=== PATIENT | male | born 1995 | race Caucasian/White ===

== ENCOUNTER 2017-09-03 16:41 | Emergency (ER) | payer OTHER ==
[~2017-09-03] VITALS: Ht 188 cm; Wt 151.1 kg
[~2017-09-03 16:41] MED LIST: NAPROSYN500 MG PO; NOHOMEMEDS; PROMETHAZINE HC25 M1 PO; TRAMADOL HCL50 MG PO; TYLENOL WITH C1 EACH PO; ZOFRAN4 MG PO
[2017-09-03] MEDS ORDERED: NORCO 7.5/321 TABLET PO (20:48)
[2017-09-03] MEDS ORDERED: VALIUM5 MG PO (20:48)
[2017-09-03] MEDS ORDERED: INDOCIN50 MG PO (20:48)
[2017-09-03 21:00] VITALS: BP 134/86
== END 2017-09-03 21:02 | disposition home or self-care (01) ==
LOC: EME 16:41
DX: S39.012A Strain of muscle, fascia and tendon of lower back, initial encounter (principal); S16.1XXA Strain of muscle, fascia and tendon at neck level, initial encounter; V49.40XA Driver injured in collision with unspecified motor vehicles in traffic accident, initial encounter; Y92.488 Other paved roadways as the place of occurrence of the external cause
CPT/HCPCS: 72100; 99281; 99284

== ENCOUNTER 2017-09-16 06:00 | Emergency (ER) | payer SELFPAY ==
[~2017-09-16] VITALS: Ht 190.5 cm; Wt 151.0 kg
[~2017-09-16 06:00] MED LIST changes: +INDOCIN50 MG PO; +NORCO 7.5/321 TABLET PO; +VALIUM5 MG PO
[2017-09-16] MEDS ORDERED: AMOXICILLIN500 MG PO (07:19)
[2017-09-16] MEDS ORDERED: MOTRIN600 MG PO (07:19)
[2017-09-16 07:21] VITALS: BP 129/83
== END 2017-09-16 07:30 | disposition home or self-care (01) ==
LOC: EME 06:00
DX: J03.90 Acute tonsillitis, unspecified (principal); F17.200 Nicotine dependence, unspecified, uncomplicated
CPT/HCPCS: 99281; 99284; J1885; J8540